=== PATIENT | male | born 1970 | race Asian ===

== ENCOUNTER 2019-09-18 09:19 | Emergency (ER) | payer MEDICARE, OTHER ==
[~2019-09-18] VITALS: Ht 160 cm; Wt 55.9 kg
[2019-09-18 09:47] LABS: GLUCOSE,POINT OF CARE 189 MG/DL (70-110)
[2019-09-18] MEDS ORDERED: AMLO2.5T4 PO (09:48)
[2019-09-18] MEDS ORDERED: GLYB2.5 PO (09:48)
[2019-09-18] MEDS ORDERED: TRIH2TAB3 PO (09:48)
[2019-09-18] MEDS ORDERED: BENA5TAB26 PO (09:48)
[2019-09-18] MEDS ORDERED: HALO1 IM (09:48)
[2019-09-18] MEDS ORDERED: METF-960 PO (09:48)
[2019-09-18] MEDS ORDERED: HALOPERIDOL DECANOATE 100 MG/ML VIAL IM ONE (11:00)
[2019-09-18 11:45] VITALS: BP 114/77
== END 2019-09-18 11:48 | disposition home or self-care (01) ==
LOC: EMS 09:41
DX: F20.0 Paranoid schizophrenia (principal); E11.65 Type 2 diabetes mellitus with hyperglycemia; E78.00 Pure hypercholesterolemia, unspecified; I10 Essential (primary) hypertension; Z79.899 Other long term (current) drug therapy; Z79.84 Long term (current) use of oral hypoglycemic drugs; Z91.018 Allergy to other foods
CPT/HCPCS: 82962; 96372; 99284; J1631

== ENCOUNTER 2020-03-18 08:34 | Emergency (ER) | payer OTHER ==
[~2020-03-18] VITALS: Ht 160 cm; Wt 54.5 kg
[~2020-03-18 08:34] MED LIST: AMLO2.5T4 PO; BENA5TAB26 PO; GLYB2.5 PO; HALO1 IM; METF-960 PO; TRIH2TAB3 PO
[2020-03-18 08:41] VITALS: BP 149/82
[2020-03-18] MEDS ORDERED: HALOPERIDOL DECANOATE 100 MG/ML VIAL IM ONE (09:15)
== END 2020-03-18 10:09 | disposition home or self-care (01) ==
LOC: EMS 08:36
DX: F20.9 Schizophrenia, unspecified (principal); E11.9 Type 2 diabetes mellitus without complications; E78.00 Pure hypercholesterolemia, unspecified; I10 Essential (primary) hypertension; Z79.84 Long term (current) use of oral hypoglycemic drugs; Z91.018 Allergy to other foods
CPT/HCPCS: 96372; 99283; J1631

== ENCOUNTER 2020-04-14 10:06 | Emergency (ER) | payer OTHER, MEDICAID ==
[~2020-04-14] VITALS: Ht 162.6 cm; Wt 54.5 kg
[2020-04-14 10:07] VITALS: BP 115/63
[2020-04-14] MEDS: HALOPERIDOL DECANOATE 100 MG/ML VIAL IM ONE (10:53)
== END 2020-04-14 11:10 | disposition home or self-care (01) ==
LOC: EMS 10:21
DX: F20.9 Schizophrenia, unspecified (principal); E11.9 Type 2 diabetes mellitus without complications; E78.00 Pure hypercholesterolemia, unspecified; I10 Essential (primary) hypertension; Z91.018 Allergy to other foods; Z79.84 Long term (current) use of oral hypoglycemic drugs
CPT/HCPCS: 96372; 99283; J1631

== ENCOUNTER 2020-06-28 07:56 | Emergency (ER) | payer OTHER, MEDICAID ==
[~2020-06-28] VITALS: Ht 157.5 cm; Wt 59.1 kg
[~2020-06-28 07:56] MED LIST changes: -AMLO2.5T4 PO; +AMLO2.5T96 PO
[2020-06-28 08:00] VITALS: BP 112/81
[2020-06-28] MEDS ORDERED: HALOPERIDOL DECANOATE 100 MG/ML VIAL IM ONE (08:15)
== END 2020-06-28 08:45 | disposition home or self-care (01) ==
LOC: EMS 08:02
DX: F25.9 Schizoaffective disorder, unspecified (principal); E11.9 Type 2 diabetes mellitus without complications; E78.00 Pure hypercholesterolemia, unspecified; I10 Essential (primary) hypertension; Z79.84 Long term (current) use of oral hypoglycemic drugs; Z79.899 Other long term (current) drug therapy
CPT/HCPCS: 82962; 96372; 99284; J1631